=== PATIENT | male | born 1975 | race Hispanic/Latino ===

== ENCOUNTER → 2020-03-12 | Outpatient (CLI) | payer OTHER ==
--- NOTE | 2020-03-12 16:54 | Diagnostic Imaging Report ---
EXAM: WRIST COMPLETE LEFT DATE: 03/12/2020 4:03 PM INDICATION: Left wrist pain COMPARISON: None FINDINGS: There is no evidence for acute fracture or dislocation. Bony mineralization is within normal limits. No focal lytic or blastic abnormality is identified. The scapholunate interval is within normal limits. The surrounding soft tissues are unremarkable without evidence for radiopaque foreign body. IMPRESSION: No acute radiographic abnormality identified within the left wrist. Signed by: Dr. Bucky Cooley MD on 03/12/2020 4:51 PM
== END ==
LOC: RAD 15:50
PROVIDERS: ATTEND Family Medicine
DX: M25.532 Pain in left wrist (principal)

== ENCOUNTER 2020-10-15 17:55 | Emergency (ER) | payer BC, OTHER ==
[~2020-10-15] VITALS: Ht 167.6 cm; Wt 104.3 kg
[2020-10-15] MEDS ORDERED: SODIUM CHLORIDE 0.9% 1000ML 1,000 ML IV STA (18:22)
[2020-10-15] MEDS ORDERED: KETOROLAC TROMETHAMINE 30 MG/ML VIAL IV STA (18:22)
[2020-10-15] MEDS ORDERED: SODIUM CHLORIDE FLUSH 10 ML SYR INJ PRN (18:30)
[2020-10-15] MEDS ORDERED: DICYCLOMINE HCL 20 MG/2 ML VIAL IM ONE ×2 (18:30→18:38)
[2020-10-15] MEDS ORDERED: KETOROLAC TROMETHAMINE 30 MG/ML VIAL ONE (18:38)
[2020-10-15] MEDS ORDERED: CIPROFLOXACIN 400 MG/D5W 200ML 200 ML IV ONE (19:00)
[2020-10-15] MEDS ORDERED: METRONIDAZOLE 500MG/NS 100ML 100 ML IV ONE (19:00)
[2020-10-15] MEDS ORDERED: IOPAMIDOL 370 MG/ML 200 ML INFUS..BTL INJ ONE (19:21)
[2020-10-15] MEDS ORDERED: SODIUM CHLORIDE 0.9% 50ML 50 ML ONE (19:21)
[2020-10-15] MEDS ORDERED: PIPER-TAZ 3.375 GM 50 ML IV ONE (21:00)
[2020-10-15] MEDS ORDERED: METHYLPREDNISOLONE SOD SUCC 125 MG/2ML VIAL IV ONE (21:00)
[2020-10-15] MEDS ORDERED: METRONIDAZOLE500 MG PO (21:12)
[2020-10-15] MEDS ORDERED: DICYCLOMINE HCL20 MG PO (21:12)
[2020-10-15] MEDS ORDERED: IMODIUM A-D2 M2 PO (21:12)
[2020-10-15] MEDS ORDERED: CIPRO500 MG PO (21:12)
[2020-10-15] MEDS ORDERED: ONDANSETRON ODT8 MG PO (21:12)
[2020-10-15] MEDS ORDERED: PREDNISONE20 MG PO (21:12)
[2020-10-15] MEDS ORDERED: METHYLPREDNISOLONE SOD SUCC 125 MG/2ML VIAL ONE (21:15)
[2020-10-15 22:31] VITALS: BP 144/86
== END 2020-10-15 21:34 | disposition home or self-care (01) ==
LOC: FSED 18:12
DX: K52.9 Noninfective gastroenteritis and colitis, unspecified (principal); A05.9 Bacterial foodborne intoxication, unspecified; R11.2 Nausea with vomiting, unspecified; E86.0 Dehydration; I10 Essential (primary) hypertension; Z98.0 Intestinal bypass and anastomosis status
CPT/HCPCS: 74177; 80048; 81003; 85025; 96372; 96374; 99284; J0500; J1885; J2543; J2930; J7030; Q9967